=== PATIENT | female | born 1950 | race Caucasian/White ===

== ENCOUNTER 2018-11-17 08:35 | Inpatient (IN) | payer MEDICARE, OTHER ==
[2018-11-17] MEDS ORDERED: LIDOCAINE HCL 2% PF 100MG/5ML VIAL IJ ONE (08:48)
[2018-11-17] MEDS ORDERED: PROPOFOL 200 MG/20 ML VIAL IV ONE (08:48)
[2018-11-17] MEDS ORDERED: ONDANSETRON HCL/PF 4 MG/ 2ML VIAL ONE (08:48)
[2018-11-17] MEDS ORDERED: SUGAMMADEX SODIUM 200 MG/2 ML VIAL IV ONE (08:48)
[2018-11-17] MEDS ORDERED: PHENYLEPHRINE HCL 10 MG/1 ML ONE (08:48)
[2018-11-17] MEDS ORDERED: GLYCOPYRROLATE 0.2 MG/1 ML 1 ML ONE (08:48)
[2018-11-17] MEDS ORDERED: SODIUM CHLORIDE IRRIG SOLUTION 1,000 ML IR ONE (08:48)
[2018-11-17] MEDS ORDERED: ePHEDrine SULFATE 50 MG/1 ML IVP ONE (08:48)
[2018-11-17] MEDS ORDERED: SEVOFLURANE 250 ML LIQUID IH ONE (08:48)
[2018-11-17] MEDS ORDERED: ceFAZolin SODIUM 1 GM VIAL ONE (08:48)
[2018-11-17] MEDS ORDERED: DEXAMETHASONE SOD PHOS 4 MG/ML VIAL ONE (08:48)
[2018-11-17] MEDS ORDERED: HYDROmorphone HCL/PF 2 MG/ML VIAL ONE (08:48)
[2018-11-17] MEDS ORDERED: ROCURONIUM BROMIDE 10 MG/ML 5ML VIAL ONE (08:48)
[2018-11-17] MEDS ORDERED: LACTATED RINGERS 1,000 ML IV.SOLN IV ONE ×2 (08:48)
[2018-11-17] MEDS ORDERED: FENTANYL CITRATE/PF 250 MCG/5 ML INJ. ONE (08:48)
[2018-11-17] MEDS ORDERED: LACTATED RINGERS 1,000 ML IV ONE (08:48)
[2018-11-17] MEDS ORDERED: ACETAMINOPHEN 500 MG TABLET PO PRN (17:10)
[2018-11-17] MEDS ORDERED: PROMETHAZINE HCL 25 MG in 0.9 % SODIUM CHLORIDE 50 ML IV PRN (17:10)
[2018-11-17] MEDS ORDERED: ONDANSETRON HCL/PF 4 MG/ 2ML VIAL IVP PRN (17:10)
[2018-11-17] MEDS ORDERED: LEVALBUTEROL HCL 1.25 MG/3 ML AMPUL.NEB NEB PRN (17:10)
[2018-11-17] MEDS ORDERED: diphenhydrAMINE HCL 25 MG TABLET PO PRN (17:10)
[2018-11-17] MEDS ORDERED: HYDROmorphone HCL 2 MG TABLET PO PRN (17:10)
[2018-11-17] MEDS ORDERED: DIAZEPAM 5 MG TABLET PO PRN (17:10)
[2018-11-17] MEDS ORDERED: oxyCODONE/ACETAMINOPHEN 5/325 TABLET PO PRN (17:10)
[2018-11-17 17:13] VITALS: BMI 29.2
[2018-11-17] MEDS ORDERED: LISINOPRIL 5 MG TABLET PO ONE (17:30)
--- NOTE | 2018-11-17 17:34 | History and Physical Report ---
History of Present Illnes - History of Present Illness Reason for Visit: Neck pain History of Present Illness: Patient underwent C5 vertebrectomy, vertebral body replacement, and fusion of C4-C6 today with Dr. Mckinney. He reports the case went very well. Patient feels ok. Complains of upper back pain. Also complains of pain in R thumb. She has undergone steroid injections, physical therapy, NSAIDs, and narcotics. She feels she is at her wits end and was looking for definitive treatment. - Past Medical History Cardiac: HTN, Hyperlipidemia [employer]: Migraine Gastrointestinal: Other (Enlarged liver) Psych: Anxiety, Depression Musculoskeletal: Osteoarthritis, Other (chronic neck pain) Endocrine: Hypothyroidism - Past Surgical History Past Surgical History: Hysterectomy, Other (L shoulder replacement), Total Hip Replacement (R), Other (R ankle ORIF) - Past Family History Mother Family History: , Other (CHF) Father Family History: Cancer ( colon), - Past Social History Smoke: 1 pack per day Alcohol: None Drugs: None Lives: Alone - Health Maintenance Health Maintenance: Cholesterol, Colonoscopy (2014), DEXA Influenza Vaccine: No Pneumonia Vaccine: Yes Resuscitation Status: Resusciation Status Resuscitation Status Full Code Review of Systems - Review of Systems Constitutional: negative: Fever, Weakness Eyes: negative: pain ENT: negative: Ear Pain Respiratory: negative: Cough, Shortness of Breath Cardiovascular: negative: Chest Pain, Palpitations Gastrointestinal: negative: Nausea, Vomiting, Abdominal Pain Genitourinary: negative: Dysuria, Frequency Musculoskeletal: Neck Pain, Arm Pain, Back Pain Skin: negative: Rash Neurological: Weakness - Medications/Allergies Allergies/Adverse Reactions: Allergies Allergy/AdvReac Type Severity Reaction Status Date / Time morphine Allergy Verified 11/17/18 18:48 Home Medications: Home Medications Aripiprazole [Abilify] 5 mg PO DAILY 11/17/18 Bupropion HCl [Wellbutrin Xl] 1 tab DAILY 11/17/18 Escitalopram Oxalate [Lexapro] 1 tab DAILY 11/17/18 Levothyroxine Sodium [Synthroid] 1 tab DAILY 11/17/18 Lisinopril [Zestril] 1 tab DAILY 11/17/18 Multivit-Min/FA/Lycopen/Lutein [Centrum Silver Tablet] 1 tab DAILY 11/17/18 Prazosin HCl [Minipress] 1 cap HS 11/17/18 Simvastatin [Zocor] 1 tab HS 11/17/18 Current Inpatient Medications: Current Inpatient Medications Acetaminophen (Tylenol Extra Strength) 500 mg PO Q4 PRN PRN Reason: for mild pain 1-4/fever Diazepam (Valium) 5 mg PO Q8H PRN PRN Reason: Anxiety/muscle spasm Diphenhydramine HCl (Benadryl) 25 mg PO Q4 PRN PRN Reason: Itching or Pruritis Fentanyl Citrate () 50 mcg IVP Q2H PRN PRN Reason: Moderate pain 5-7 Stop: 11/18/18 17:09 Heparin Sodium (Porcine) (Heparin) 5,000 unit SQ Q12 [facility] Hydromorphone HCl (Dilaudid) 4 mg PO Q4H PRN PRN Reason: Severe Pain 8-10 Stop: 11/18/18 17:09 Promethazine HCl 25 mg/ Sodium (Chloride) 51 mls @ 600 mls/hr IV Q6 PRN PRN Reason: Nausea / Vomiting Stop: 11/21/18 17:09 Ketorolac Tromethamine (Toradol) 15 mg IVP Q6 PRN PRN Reason: For Mild Pain 1-4 Stop: 11/21/18 17:09 Levalbuterol HCl (Xopenex) 1.25 mg NEB Q4 PRN PRN Reason: SOA, Dyspnea, or Wheezing Stop: 11/21/18 17:09 Levothyroxine Sodium (Synthroid) mcg PO DAILY [facility] Lisinopril (Prinivil) 10 mg PO DAILY [facility] Stop: 11/17/18 17:31 Miscellaneous (Aripiprazole [Abilify]) 5 mg PO DAILY [facility] Miscellaneous (Escitalopram Oxalate [Lexapro]) 1 tab PO DAILY [facility] Miscellaneous (Bupropion Hcl [Wellbutrin Xl]) 300 tab PO DAILY [facility] Nicotine (Habitrol 14mg) 1 patch TD DAILY [facility] Ondansetron HCl (Zofran 4 Mg/2 Ml) 4 mg IVP Q6H PRN PRN Reason: Nausea / Vomiting Stop: 11/21/18 17:09 Oxycodone/Acetaminophen (Percocet 5-325 Mg Tablet) 1 each PO Q4 PRN PRN Reason: For pain 1-4 out of 10 Prazosin HCl (Minipress) mg PO HS [facility] Exam - Exam Vital Signs: Vital Signs (72 hours) 11/17/18 11/17/18 11/17/18 15:37 15:48 16:41 Temperature 98.5 F 98.2 F 98.5 F Pulse Rate [ 96 H 96 H 94 H Left] Respiratory 16 20 16 Rate Blood Pressure 135/75 130/76 131/73 [Left Arm] O2 Sat by Pulse 94 93 93 Oximetry General: Alert, Oriented to Person, Oriented to Place, Oriented to Time, Co operative, Mild distress (pain) HEENT: Atraumatic, PERRLA, EOMI, Mouth Mucous membr. moist/[place] Neck: Other (neck in soft collar.) Lungs: Clear to auscultation, Normal air movement, Speaks full Sentences Cardiovascular: Regular rate Abdomen: Normal bowel sounds, Soft, No tenderness Integumentary: Normal Extremities: Other (Exquistely tender base of R thumb. Dr. Mckinney removed arm bands and pain resolved) Neurological: Normal gait, Normal speech, Strength Equal Bilat, Sensation intact, Cranial nerves 3-12 NL, Reflexes 2+ Psych/Mental Status: Mental status NL, Mood NL, Appropriate Affect Assessment/Plan - Assessment/Plan (1) S/P cervical spinal fusion Status: Acute Current Visit: Yes Plan: Patient doing ok but in quite a bit of pain. Will get IV fentanyl ordered. Kpad. STart CLD so we can advance to po pain meds soon without making her sick. Heparin for DVT prevention. PT/OT to get patient up and walking. IS every hour. (2) Essential (primary) hypertension Status: Chronic Current Visit: No Plan: Watch. (3) Anxiety and depression Status: Chronic Current Visit: No (4) Osteoarthritis Status: Chronic Current Visit: Yes Qualifiers: Osteoarthritis location: multiple joints Osteoarthritis type: primary Qualified Code(s): M15.0 - Primary generalized (osteo)arthritis VTE Assessment - RISK FACTOR SCORE VTE RISK FACTOR SCORES: AGE OVER 60 YEARS, MAJOR SURGERY/ANESTHESIA TIME > 1 HOUR - RISK VTE MODERATE RISK: SCORE OF 2 (RISK PROXIMAL DVT 2-4%) PROPHYAXIS NEEDED
[2018-11-17] MEDS ORDERED: fentaNYL CITRATE/PF 100 MCG/2 ML INJ. ONE (17:43)
[2018-11-17] MEDS: fentaNYL CITRATE/PF 100 MCG/2 ML INJ. IVP PRN (17:46)
[2018-11-17] MEDS ORDERED: PRAZOSIN HCL 1 MG CAPSULE PO ONE (19:27)
[2018-11-17] MEDS: HEPARIN SODIUM 5000 UNIT/1 ML SQ SCH (20:20)
[2018-11-17] MEDS ORDERED: PRAZOSIN HCL 1 MG CAP PO SCH (21:00)
[2018-11-17] MEDS: KETOROLAC TROMETHAMINE 30 MG/1ML VIAL IVP PRN (22:14)
[2018-11-18] MEDS: KETOROLAC TROMETHAMINE 30 MG/1ML VIAL IVP PRN (03:54)
[2018-11-18] MEDS: fentaNYL CITRATE/PF 100 MCG/2 ML INJ. IVP PRN (06:41)
[2018-11-18 07:17] LABS: MEAN CORPUSCULAR HEMOGLOBIN 31.1 pg (28.0-34.0)
[2018-11-18 07:18] LABS: BASOPHILS % 0.3 (0.0-1.5); EOSINOPHILS % 0.9 % (0.0-6.8); MONOCYTES % 6.2 % (0.0-11.0); NEUTROPHILS # 7.7 # k/uL (1.4-7.7)
[2018-11-18 07:33] LABS: eGFR (Non-African) > 60
[2018-11-18] MEDS ORDERED: oxyCODONE/ACETAMINOPHEN 5/325 TABLET PO PRN (08:09)
[2018-11-18] MEDS ORDERED: ESCITALOPRAM OXALATE PO SCH (09:00)
[2018-11-18] MEDS ORDERED: LISINOPRIL PO SCH (09:00)
[2018-11-18] MEDS ORDERED: ARIPIPRAZOLE 5 MG PO SCH (09:00)
[2018-11-18] MEDS ORDERED: BUPROPION HCL PO SCH ×2 (09:00)
[2018-11-18] MEDS ORDERED: LEVOTHYROXINE SODIUM 25 MCG TABLET PO SCH (09:00)
[2018-11-18] MEDS ORDERED: NICOTINE 14mg PATCH.TD24 TD SCH (09:00)
--- NOTE | 2018-11-18 09:00 | Discharge Summary ---
Discharge Summary - Discharge Sumary History of Present Illness: Patient underwent C5 vertebrectomy, vertebral body replacement, and fusion of C4-C6 today with Dr. Mckinney. He reports the case went very well. Patient feels ok. Complains of upper back pain. Also complains of pain in R thumb. She has undergone steroid injections, physical therapy, NSAIDs, and narcotics. She feels she is at her wits end and was looking for definitive treatment. Condition at Discharge: Stable Home Medications: Ambulatory Orders Medication Instructions Recorded Aripiprazole [Abilify] 5 mg PO DAILY 11/17/18 Bupropion HCl [Wellbutrin Xl] 1 tab DAILY 11/17/18 Escitalopram Oxalate [Lexapro] 1 tab DAILY 11/17/18 Levothyroxine Sodium [Synthroid] 1 tab DAILY 11/17/18 Lisinopril [Zestril] 1 tab DAILY 11/17/18 Multivit-Min/FA/Lycopen/Lutein 1 tab DAILY 11/17/18 [Centrum Silver Tablet] Prazosin HCl [Minipress] 1 cap HS 11/17/18 Simvastatin [Zocor] 1 tab HS 11/17/18 Consultations this Visit: None Procedures this Visit: None Allergies/Adverse Reactions: Allergies Allergy/AdvReac Type Severity Reaction Status Date / Time morphine Allergy Unknown Verified 11/18/18 07:56 Patient Problems: Current Active Problems Problem Status Onset S/P cervical spinal fusion Acute Osteoarthritis Chronic Hospital Course: Patient underwent C5 vebrectomy with C4-C6 spinal fusion. Due to enhanced pain in neck and R hand she was admitted for IV pain control. She tolerated an oral diet well and was transitioned to oral pain meds. Discharged home in good condition.
[2018-11-18] MEDS: HEPARIN SODIUM 5000 UNIT/1 ML SQ SCH (10:05)
[2018-11-18 14:13] VITALS: BP 104/56
[2018-11-18] MEDS ORDERED: DISP SYRIN IM ONE (17:32)
[2018-11-18] MEDS ORDERED: [UNRECOGNIZED DRUG - OTHER] IM ONE (17:32)
== END 2018-11-18 14:43 | disposition home or self-care (01) | DRG 552 ==
LOC: OPSURG 08:35 → SOUTH 15:21
PROVIDERS: ADMIT Family Medicine; ATTEND Family Medicine
DX: M48.02 Spinal stenosis, cervical region (principal); M48.52XA Collapsed vertebra, not elsewhere classified, cervical region, initial encounter for fracture; M50.221 Other cervical disc displacement at C4-C5 level; M50.222 Other cervical disc displacement at C5-C6 level; I10 Essential (primary) hypertension; G89.18 Other acute postprocedural pain; M54.2 Cervicalgia
CPT/HCPCS: 20936; 22551; 22552; 22845; 22853; 80048; 85025; 90471; 90656; 99231; 99238; J0690; J1100; J1170; J1644; J1885; J2001; J2307; J2405; J2704; J3010; J3490; A9270-GY; J2370; J7120; S1016